=== PATIENT | male | born 1985 | race African-American/Black ===

== ENCOUNTER 2021-12-16 12:15 | Emergency (ER) | payer SELFPAY ==
[2021-12-16] MEDS ORDERED: Sodium Chloride 0.9% 1,000 ML ONE (12:28)
[2021-12-16 12:56] LABS: Hemoglobin 14.4 g/dL (14.0-18.0); Mean Corpuscular HGB CONC 30.7 g/dL (32.0-36.0); Mean Corpuscular Hemoglobin 22.1 pg (27.0-31.0); Mean Platelet Volume 9.4 fL (7.4-10.4); Platelet Count 282 thou/uL (130-400); RBC Distribution Width 13.5 % (11.5-14.5); Red Blood Cell (RBC) Count 6.53 mill/uL (4.70-6.10); White Blood Cell (WBC) Count 9.6 thou/uL (4.8-10.8)
[2021-12-16 13:07] LABS: ALT (SGPT) 18 U/L (8-55); AST (SGOT) 17 U/L (5-34); Acetaminophen Less than 10.0 mcg/mL (10.0-30.0); Albumin 4.1 g/dL (3.5-5.0); Alcohol Less than 10 mg/dL (Less than 10); Alkaline Phosphatase 63 U/L (40-110); Anion Gap 14 mmol/L (10-20); Anisocytosis SLIGHT = 6-15 cells (100X) (0-5/hpf); BUN (Urea Nitrogen) 6 mg/dL (8.9-20.6); Band 1 % (5-11); Bilirubin, Total 0.3 mg/dL (0.2-1.2); CK (CPK) 242 U/L (30-200); Calc. Creatinine Clearance 0 mL/min (70-130); Calcium 9.2 mg/dL (7.8-10.44); Carbon Dioxide 23 mmol/L (22-29); Chloride 105 mmol/L (98-107); Eosinophils 4 % (0-10); Estimated GFR 96; Globulin 2.9 g/dL (2.4-3.5); Glucose 89 mg/dL (70-105); Lymphocytes 32 % (21-51); MDiff Complete? YES; Manual Diff?? YES; Microcytosis SLIGHT = 6-15 cells (100X) (0-5/hpf); Monocytes 8 % (0-10); Neutrophil 55 % (42-75); Potassium 3.4 mmol/L (3.5-5.1); Salicylate Less than 8.0 mg/dL (15.0-30.0); Sodium 139 mmol/L (136-145)
[2021-12-16 13:08] LABS: Platelet Morphology Comment Appears Adequate
[2021-12-16 14:09] LABS: Amphetamine Not Detected (NotDetected); Barbiturates Screen Not Detected (NotDetected); Benzodiazepine Screen Not Detected (NotDetected); Cocaine Metabolite Screen Not Detected (NotDetected); Medtox Control Line Valid? VALID (VALID); Methadone Not Detected (NotDetected); Methamphetamine Not Detected (NotDetected); Opiate Screen Not Detected (NotDetected); Oxycodone Screen Not Detected (NotDetected); Phencyclidine (PCP) Detected (NotDetected); THC/Cannabinoid Screen Not Detected (NotDetected); Tricyclic Screen Not Detected (NotDetected)
== END 2021-12-16 14:56 | disposition home or self-care (01) ==
LOC: MADERS 12:15
DX: R56.9 Unspecified convulsions (principal); S01.512A Laceration without foreign body of oral cavity, initial encounter; S40.019A Contusion of unspecified shoulder, initial encounter; F16.90 Hallucinogen use, unspecified, uncomplicated
CPT/HCPCS: 70450; 71045; 80053; 80306; 80307; 82550; 84484; 85025; 93005; 94760; J7050